=== PATIENT | female | born 1945 | race Caucasian/White ===

== ENCOUNTER 2017-03-30 14:21 | Emergency (ER) | payer MEDICARE, OTHER ==
[~2017-03-30] VITALS: Ht 165.1 cm; Wt 49.9 kg
[~2017-03-30 14:21] MED LIST: LIPITOR10 MG PO; TOPROL XL50 MG PO; nasal decongestant
[2017-03-30] MEDS ORDERED: SINEMET 25-1001 EAC1 PO (14:43)
[2017-03-30] MEDS ORDERED: ZYRTEC10 M4 PO (14:44)
[2017-03-30] MEDS ORDERED: UNICOMPLEX M TA1 TA1 PO (14:44)
[2017-03-30] MEDS ORDERED: AUGMENTIN 875-1 EACH PO (15:14)
[2017-03-30] MEDS ORDERED: HYDROCODONE-AP1 EAC6 PO (15:14)
[2017-03-30] MEDS ORDERED: IBUPROFEN 600600 M1 PO (16:10)
[2017-03-30 16:29] VITALS: BP 166/93
== END 2017-03-30 16:30 | disposition home or self-care (01) ==
LOC: M.ERS 14:21
DX: S41.151A Open bite of right upper arm, initial encounter (principal); S71.151A Open bite, right thigh, initial encounter; E11.9 Type 2 diabetes mellitus without complications; G20 Parkinson's disease; Z88.2 Allergy status to sulfonamides; Z91.012 Allergy to eggs; W54.0XXA Bitten by dog, initial encounter; Y93.89 Activity, other specified; Y92.89 Other specified places as the place of occurrence of the external cause; Y99.8 Other external cause status